=== PATIENT | female | born 1970 | race Caucasian/White ===

== ENCOUNTER → 2017-12-07 17:46 | Outpatient (CLI) | payer OTHER, SELFPAY ==
--- NOTE | 2017-12-07 17:59 | DI.MRI.S_ITS ---
PROCEDURE: MR HEAD/BRAIN WO CON INDICATIONS: MS check up TECHNIQUE: Noncontrast sagittal and axial FLAIR, axial and coronal T2 fast spin echo, axial VIBE, axial gradient echo, axial diffusion and ADC through the brain. After the administration of contrast, axial and coronal VIBE with fat saturation through the brain. COMPARISON: , MR, BRAIN W&WO CONTRAST, 05/04/2016, 18:55. FINDINGS: Image quality: Excellent. CSF spaces: Ventricles are normal in size and shape. Basal cisterns are patent. No extra-axial fluid collections. Brain: No intracranial bleeds or mass effects. Yancey-white matter interface appears intact. No suspicious white matter lesions. No abnormal intracranial enhancement. Diffusion weighted images show no acute ischemic insults. Brainstem appears normal. Normal intravascular flow voids are present. Skull and face: Calvarial marrow signal is normal. Orbits appear normal. Sinuses: Sinuses and mastoids are clear. IMPRESSION: The current examination shows no identifiable area of abnormal white matter signal, and overall currently the brain parenchyma appears normal for age. The brainstem and upper cervical cord also are visualized on the sagittal flair imaging and appear normal. Dictated by: Renato Nelson M.D. on 12/08/2017 at 9:30 Approved by: Renato Nelson M.D. on 12/08/2017 at 9:34
--- NOTE | 2017-12-07 17:59 | DI.MRI.S_ITS ---
PROCEDURE: MR CERVICAL SPINE WO CON INDICATIONS: MS TECHNIQUE: Noncontrast sagittal T1 spin echo and T2 fast spin echo, sagittal STIR, foraminal oblique sagittal T2 fast spin echo, and axial gradient echo or T2 fast spin echo through the cervical spine. COMPARISON: [facility], MR, C-SPINE W&WO CONTRAST, 05/04/2016, 19:15. [facility], MR, MR HEAD/BRAIN WO CON, 12/07/2017, 18:04. FINDINGS: Image quality: Excellent. Alignment and Curvature: There is normal bony alignment. Bone Marrow: Marrow demonstrates normal overall signal. Spinal Cord: Visualized spinal cord has normal size and signal. No cerebellar tonsillar herniation. Paraspinous Soft Tissues: No paravertebral masses. Prevertebral soft tissues are normal in thickness. C2-C3: Normal appearance. C3-C4: Normal appearance except for a slight degree of posterior right-sided this bulge, best seen on axial imaging, without foraminal stenosis but with slight anterior right spinal stenosis. C4-C5: Normal appearance except for a minimal right-sided posterior disc bulge without spinal or foraminal stenosis. C5-C6: Moderate degenerative disc disease, with a posterior transverse broad-based disc bulge that is greater on the left than the right, and which effaces CSF from the anterior thecal sac, and extends mildly into the internal os of the neural foramen on the left, producing mild to moderate left greater than right spinal stenosis and mild left foraminal stenosis. C6-C7: Normal appearance except for mild disc desiccation. C7-T1: Normal appearance. IMPRESSION: No intrinsic lesion within the visualized brainstem or cervical cord that would indicate presence of underlying multiple sclerosis. There has been mild interval worsening of degenerative disc disease along the cervical spine when compared to the prior study from 05/04/16. This results in mildly worsened degree of C5-C6 spinal and foraminal stenosis, left greater than right. Mild degenerative changes elsewhere as noted. Dictated by: Renato Nelson M.D. on 12/08/2017 at 9:34 Approved by: Renato Nelson M.D. on 12/08/2017 at 9:40
== END ==
PROVIDERS: Family Provider Nurse Practitioner Family; PCP Nurse Practitioner Family; Visit Provider Psychiatry & Neurology Neurology
DX: G35 Multiple sclerosis (principal); M50.30 Other cervical disc degeneration, unspecified cervical region; M48.02 Spinal stenosis, cervical region; M99.71 Connective tissue and disc stenosis of intervertebral foramina of cervical region
CPT/HCPCS: 70551; 72141

== ENCOUNTER → 2018-04-27 12:57 | Outpatient (CLI) | payer OTHER, SELFPAY ==
[2018-04-27 13:09] LABS: Bacteria Urine None Seen
[2018-04-27 13:17] LABS: Appearance Urine UA CLOUDY; Bilirubin Urine UA NEGATIVE (NEGATIVE); Color Urine UA RED; Glucose Urine UA NEGATIVE (Normal); Ketones Urine UA NEGATIVE (NEGATIVE); Leukocyte Esterase Urine UA 1+ (NEGATIVE); Nitrite Urine UA NEGATIVE (Negative); Occult Blood Urine UA 3+ (Negative); Protein Urine UA 2+ (Negative); Specific Gravity Urine UA 1.025 (1.000-1.035); Urobilinogen Urine UA 0.2 E.U./dL (0.2)
[2018-04-27 13:29] LABS: Amorphous Sediment Urine 2+; Culture Indicated Urine Specimen Cultured; RBC Urine 5-10/HPF (0-5/HPF); Squamous Epithelial Cell Urine 1-5 /HPF; WBC Urine 5-10/HPF (0-5/HPF)
== END ==
PROVIDERS: PCP Nurse Practitioner Family; Visit Provider Nurse Practitioner Family
DX: R30.0 Dysuria (principal); R31.9 Hematuria, unspecified
CPT/HCPCS: 81001; 87077; 87086; 87186

== ENCOUNTER → 2019-02-28 07:24 | Outpatient (CLI) | payer OTHER, SELFPAY ==
[2019-02-28 08:15] LABS: Appearance Urine UA SL CLOUDY; Bilirubin Urine UA NEGATIVE (NEGATIVE); Color Urine UA YELLOW; Glucose Urine UA NEGATIVE (Negative); Ketones Urine UA NEGATIVE (NEGATIVE); Leukocyte Esterase Urine UA 1+ (NEGATIVE); Nitrite Urine UA POSITIVE (Negative); Occult Blood Urine UA 3+ (Negative); Protein Urine UA 1+ (Negative); Specific Gravity Urine UA 1.015 (1.000-1.035); Urobilinogen Urine UA 0.2 E.U./dL (0.2)
[2019-02-28 08:34] LABS: pH Urine UA 5.5 (4.5-8.0)
[2019-02-28 08:35] LABS: Bacteria Urine Many (>30); RBC Urine 30-100/HPF (0-5/HPF); Squamous Epithelial Cell Urine 1-5 /HPF (0-5/HPF); WBC Urine 30-100/HPF (0-5/HPF)
[2019-02-28 08:36] LABS: Culture Indicated Urine Specimen Cultured
== END ==
PROVIDERS: PCP Nurse Practitioner; Visit Provider Nurse Practitioner
DX: R39.89 Other symptoms and signs involving the genitourinary system (principal)
CPT/HCPCS: 81001; 87077; 87086; 87186

== ENCOUNTER → 2019-03-06 08:27 | Outpatient (CLI) | payer OTHER, SELFPAY | PROVIDERS: PCP Nurse Practitioner; Visit Provider Nurse Practitioner | DX: N39.0 Urinary tract infection, site not specified (principal) | CPT/HCPCS: 87077; 87086; 87186 ==

== ENCOUNTER → 2019-04-07 17:30 | Outpatient (CLI) | payer OTHER, SELFPAY | PROVIDERS: PCP Nurse Practitioner; Visit Provider Physician Assistant | DX: R30.0 Dysuria (principal) | CPT/HCPCS: 87077; 87086; 87186 ==

== ENCOUNTER → 2019-07-28 11:39 | Outpatient (CLI) | payer OTHER, SELFPAY ==
[2019-07-28 12:21] LABS: Add Manual Diff / Slide Review NO; Basophils Absolute Auto 0 /uL (0-100); Basophils Percent Auto 0.6 % (0-2); Eosinophils Absolute Auto 100 /uL (0-450); Eosinophils Percent Auto 1.2 % (2-4); Hematocrit 34.7 % (36-46); Hemoglobin 11.4 g/dL (12.0-16.0); Lymphocytes Absolute Auto 2100 /uL (1100-4500); Lymphocytes Percent Auto 29.5 % (25-40); Mean Corpuscular HGB Conc 32.9 % (30-36); Mean Corpuscular Hemoglobin 27.9 PG (26-34); Mean Corpuscular Volume 85.1 fL (80-100); Monocytes Absolute Auto 600 /uL (0-900); Monocytes Percent Auto 7.6 % (3-14); Neutrophils Absolute Auto 4400 /uL (1500-7000); Neutrophils Percent Auto 61.1 % (50-75); Platelet Count 338 X10^3/uL (150-400); Red Blood Cell Count 4.08 X10^6/uL (4.0-5.2); Red Cell Distribution Width 13.2 % (11.6-14.8); White Blood Cell Count 7.3 X10^3/uL (4.5-11.0)
[2019-07-28 12:36] LABS: Alanine Aminotransferase 30 IU/L (<35); Albumin Globulin Ratio 1.5 (1.0-2.8); Alkaline Phosphatase 92 U/L (38-126); Aspartate Aminotransferase 24 IU/L (14-36); Bilirubin Total 0.3 mg/dL (0.2-1.3); Blood Urea Nitrogen 16 mg/dL (7-17); Calcium 9.5 mg/dL (8.4-10.2); Carbon Dioxide 23 mmol/L (22-32); Chloride 106 mmol/L (98-107); Cholesterol 195 mg/dL (140-199); Estimated Glomerular Filt Rate 59.4 mL/min (>60); Globulin 2.7 g/dL (1.7-4.1); Glucose 96 mg/dL (70-100); HDL Cholesterol 51 mg/dL (40-60); HEMOLYSIS < 15 (0-50); LDL Cholesterol Calculated 113 mg/dL (<100); Magnesium 2.2 mg/dL (1.6-2.3); Potassium 3.9 mmol/L (3.4-5.1); Sodium 139 mmol/L (137-145); Total Protein 6.7 g/dL (6.3-8.2); Triglycerides 154 mg/dL (35-150); VLDL Cholesterol Calculated 31 mg/dL (2-30)
[2019-07-28 12:53] LABS: Vitamin D 25 Hydroxy (D3) 77.2 ng/mL (30.0-100.0)
[2019-07-28 13:12] LABS: Ferritin 6 ng/mL (6-137)
[2019-07-28 13:42] LABS: Folate > 20.0 ng/mL (2.76-20.0); Vitamin B12 820 pg/mL (239-931)
[2019-08-01 15:48] LABS: Vitamin B1 170 nmol/L (78-185)
== END ==
PROVIDERS: PCP Nurse Practitioner; Referring Provider Surgery; Visit Provider Surgery
DX: K91.2 Postsurgical malabsorption, not elsewhere classified (principal)
CPT/HCPCS: 36415; 80053; 80061; 82306; 82607; 82728; 82746; 83735; 84425; 85025

== ENCOUNTER → 2019-11-08 12:16 | Outpatient (CLI) | payer OTHER, SELFPAY ==
[2019-11-08 12:40] LABS: Add Manual Diff / Slide Review NO; Basophils Absolute Auto 100 /uL (0-100); Basophils Percent Auto 0.8 % (0-2); Eosinophils Absolute Auto 100 /uL (0-450); Hematocrit 39.3 % (36-46); Hemoglobin 13.4 g/dL (12.0-16.0); Lymphocytes Absolute Auto 3000 /uL (1100-4500); Lymphocytes Percent Auto 30.2 % (25-40); Mean Corpuscular Hemoglobin 30.3 PG (26-34); Mean Corpuscular Volume 89.1 fL (80-100); Monocytes Absolute Auto 600 /uL (0-900); Neutrophils Absolute Auto 6200 /uL (1500-7000); Platelet Count 315 X10^3/uL (150-400); Red Blood Cell Count 4.41 X10^6/uL (4.0-5.2); Red Cell Distribution Width 20.1 % (11.6-14.8)
[2019-11-08 13:16] LABS: Alanine Aminotransferase 23 IU/L (<35); Albumin 4.2 g/dL (3.5-5.0); Albumin Globulin Ratio 1.3 (1.0-2.8); Alkaline Phosphatase 85 U/L (38-126); Aspartate Aminotransferase 21 IU/L (14-36); BUN Creatinine Ratio 21.8 (6-22); Bilirubin Total 0.4 mg/dL (0.2-1.3); Blood Urea Nitrogen 22 mg/dL (7-17); Calcium 9.8 mg/dL (8.4-10.2); Carbon Dioxide 23 mmol/L (22-32); Chloride 106 mmol/L (98-107); Cholesterol 214 mg/dL (140-199); Estimated Glomerular Filt Rate 58.8 mL/min (>60); Globulin 3.2 g/dL (1.7-4.1); Glucose 97 mg/dL (70-100); HDL Cholesterol 55 mg/dL (40-60); HEMOLYSIS < 15 (0-50); LDL Cholesterol Calculated 116 mg/dL (<100); Magnesium 2.3 mg/dL (1.6-2.3); Potassium 4.4 mmol/L (3.4-5.1); Sodium 138 mmol/L (137-145); Total Protein 7.4 g/dL (6.3-8.2); Triglycerides 216 mg/dL (35-150)
[2019-11-08 13:42] LABS: RBC Morphology Normal Morphology
[2019-11-08 13:48] LABS: Ferritin 23 ng/mL (6-137)
[2019-11-08 14:18] LABS: Folate > 20.0 ng/mL (2.76-20.0); Vitamin B12 587 pg/mL (239-931)
[2019-11-08 16:54] LABS: Vitamin D 25 Hydroxy (D3) 77.5 ng/mL (30.0-100.0)
[2019-11-12 16:07] LABS: Vitamin B1 169.6 nmol/L (66.5-200.0)
== END ==
PROVIDERS: PCP Nurse Practitioner; Referring Provider Surgery; Visit Provider Surgery
DX: K91.2 Postsurgical malabsorption, not elsewhere classified (principal)
CPT/HCPCS: 36415; 80053; 80061; 82306; 82607; 82728; 82746; 83735; 84425; 85025

== ENCOUNTER → 2019-12-14 14:07 | Outpatient (CLI) | payer OTHER, SELFPAY ==
--- NOTE | 2019-12-14 14:09 | DI.US.S_ITS ---
PROCEDURE: US PELVIC COMPLETE INDICATIONS: MISSING IUD STRINGS AND CLOTS TECHNIQUE: Real-time scanning was performed of the pelvic organs, with image documentation. Additional endovaginal scanning was necessary due to incomplete visualization of the adnexal and endometrial structures by transabdominal scanning. COMPARISON: [facility], US, PELVIC COMPLETE, 07/27/2015, 19:17. FINDINGS: Transabdominal scanning: Limited scanning through the kidneys shows no hydronephrosis. No pathologic free abdominal or pelvic fluid. Endovaginal scanning: Uterus: Uterus is normal in size at 15.2 x 5.48 x 7.2 cm. The endometrium is not well visualized and cannot be accurately assessed. 29 mm subserosal fibroid. No intrauterine device is seen. Ovaries: Ovaries normal bilaterally measuring 3.4 x 1.6 x 2.0 cm on the right and 3.0 x 1.5 x 2.4 cm on the left. IMPRESSION: 1. No intrauterine device. 2. 29 mm subserosal fibroid. 3. Endometrial complex suboptimally visualized. Dictated by: Edgar PARSONS Interpreted: Gilberto De Leon MD on 12/14/2019 at 15:40 Approved by: Gilberto De Leon M.D. on 12/14/2019 at 16:26
== END ==
PROVIDERS: PCP Nurse Practitioner; Referring Provider Nurse Practitioner; Visit Provider Nurse Practitioner
DX: D25.2 Subserosal leiomyoma of uterus (principal); T83.32XA Displacement of intrauterine contraceptive device, initial encounter
CPT/HCPCS: 76830; 76856

== ENCOUNTER → 2019-12-15 06:53 | Outpatient (CLI) | payer OTHER, SELFPAY ==
[2019-12-15 08:29] LABS: Add Manual Diff / Slide Review NO; Basophils Absolute Auto 0 /uL (0-100); Basophils Percent Auto 0.6 % (0-2); Eosinophils Absolute Auto 100 /uL (0-450); Eosinophils Percent Auto 1.3 % (2-4); Hematocrit 36.8 % (36-46); Hemoglobin 12.4 g/dL (12.0-16.0); Lymphocytes Absolute Auto 2200 /uL (1100-4500); Lymphocytes Percent Auto 29.7 % (25-40); Mean Corpuscular HGB Conc 33.6 % (30-36); Mean Corpuscular Hemoglobin 32.2 PG (26-34); Mean Corpuscular Volume 95.6 fL (80-100); Monocytes Absolute Auto 600 /uL (0-900); Monocytes Percent Auto 7.3 % (3-14); Neutrophils Absolute Auto 4600 /uL (1500-7000); Neutrophils Percent Auto 61.1 % (50-75); Platelet Count 246 X10^3/uL (150-400); Red Blood Cell Count 3.85 X10^6/uL (4.0-5.2); Red Cell Distribution Width 13.2 % (11.6-14.8); White Blood Cell Count 7.6 X10^3/uL (4.5-11.0)
[2019-12-15 08:40] LABS: Alanine Aminotransferase 27 IU/L (<35); Albumin 3.9 g/dL (3.5-5.0); Albumin Globulin Ratio 1.5 (1.0-2.8); Alkaline Phosphatase 74 U/L (38-126); Aspartate Aminotransferase 21 IU/L (14-36); BUN Creatinine Ratio 14.9 (6-22); Bilirubin Total 0.4 mg/dL (0.2-1.3); Blood Urea Nitrogen 14 mg/dL (7-17); Calcium 9.7 mg/dL (8.4-10.2); Carbon Dioxide 27 mmol/L (22-32); Chloride 105 mmol/L (98-107); Cholesterol 197 mg/dL (140-199); Estimated Glomerular Filt Rate > 60.0 mL/min (>60); Globulin 2.6 g/dL (1.7-4.1); Glucose 89 mg/dL (70-100); HDL Cholesterol 57 mg/dL (40-60); HEMOLYSIS < 15 (0-50); LDL Cholesterol Calculated 116 mg/dL (<100); Potassium 3.9 mmol/L (3.4-5.1); Sodium 139 mmol/L (137-145); Total Protein 6.5 g/dL (6.3-8.2); Triglycerides 119 mg/dL (35-150)
[2019-12-15 09:09] LABS: Thyroid Stimulating Hormone 2.52 uIU/mL (0.47-4.68)
[2019-12-15 10:48] LABS: Creatinine Urine Random 272.8 mg/dL
[2019-12-15 10:50] LABS: Microalbumi Creatinin Ratio Ur 3.2 ug/mg CR (<30); Microalbumin Urine Random 0.9 mg/dL (0-1.6)
== END ==
PROVIDERS: PCP Nurse Practitioner; Referring Provider Nurse Practitioner; Visit Provider Nurse Practitioner
DX: E03.9 Hypothyroidism, unspecified (principal); E66.9 Obesity, unspecified; E78.5 Hyperlipidemia, unspecified; F32.9 Major depressive disorder, single episode, unspecified; I10 Essential (primary) hypertension; Z78.9 Other specified health status
CPT/HCPCS: 36415; 80053; 80061; 82043; 82570; 84443; 85025

== ENCOUNTER → 2020-01-01 14:29 | Outpatient (CLI) | payer OTHER, SELFPAY ==
[2020-01-02 16:23] LABS: COVID19 Sendout Not Detected (Not Detect)
== END ==
PROVIDERS: PCP Nurse Practitioner; Visit Provider Physician Assistant
DX: Z11.59 Encounter for screening for other viral diseases (principal)
CPT/HCPCS: 87635

== ENCOUNTER 2020-01-04 12:43 | Day surgery (SDC) | payer OTHER, SELFPAY ==
[2019-12-28 08:03] VITALS: BMI 28.4
[2020-01-04] VITALS (15 sets, daily range): BP systolic 95–163; BP diastolic 59–91; PULSE 62–88; RESP 10–20; TEMP 35.9–36.9; O2SAT 62–100; BMI 28.4
--- NOTE | 2020-01-04 | PATH_ITS ---
[facility] Accession Number: [id number] . 01 Material submitted: . UTERUS/FALLOPIAN TUBES - UTERUS AND BILATERAL FALLOPIAN TUBES . 02 Diagnosis: Uterus and Bilateral Fallopian Tubes, Hysterectomy and Bilateral Salpingectomy (Weight 176 grams): Weakly proliferative / inactive endometrium; negative for glandular hyperplasia, cytologic atypia or malignancy. Myometrium with involvement by adenomyosis and with a mitotically active leiomyoma (7 mitoses per 10 high-power field); negative for cytologic atypia, regions of necrosis, or malignancy. Uterine serosa with no significant abnormality by gross examination. Fallopian tubes x2 with no significant histomorphologic abnormality. [facility] 01/08/2020 1651 Local . 02 Electronically signed: . Julianne Hanks MD, Pathologist NPI- [id number] . 01 Gross description: . Specimen A is received in formalin, labeled with patient identification and uterus, bilateral fallopian tubes. It consists of 176-gram yellow-orourke and mildly firm uterine fragments (13.6 x 11.7 x 4.5 cm in aggregate) and two undesignated and fimbriated fallopian tubes (3.7 to 5.8 cm in length and 0.5 cm in diameter each). Sectioning the uterine fragments reveals yellow-orourke whorled and trabeculated cut surfaces without any grossly identified necrosis or hemorrhage. The serosae of the fallopian tubes are purple to pink-orourke and dull. Sectioning the fallopian tubes reveals pinpoint and patent lumina which are lined by yellow-orourke and grossly unremarkable mucosa. The fimbriae are freely moveable. Soapstoner sections are submitted in seven cassettes. . Summary of sections: A1-A5 - office services representative sections of uterine fragments, two pieces each. A6 - office services representative bisected fimbria and office services representative cross-sections, longer fallopian tube, four pieces. A7 - office services representative bisected fimbria and office services representative cross-sections, shorter fallopian tube, four pieces. ([id number]) /MRV 01/05/2020 1011 Local . 02 Pathologist provided ICD-10: N92.1, N64.9, N85.2, N92.0 . 02 CPT . 034137 Performed at: [address] [facility] [address] [id number] MD Oneil Whitt MD Phone: [phone] Performed at: [address] [facility] [address] [id number] MD Renetta Peres MD Phone: [phone]
--- NOTE | 2020-01-04 12:54 | SUR.OPER ---
Lithotomy on padded OR bed. Chili Pad Positioner under torso. Head on pillow, arms padded and tucked at sides. Legs secured in padded yellow fins stirrups.
[2020-01-04] MEDS: LACTATED RINGERS 1,000 ML 100 ML IV ×2 (13:11→17:53)
[2020-01-04] MEDS: CEFAZOLIN 2 GM/100 ML FROZ.PIGGY IV (13:36)
--- NOTE | 2020-01-04 13:38 | PM.PREOP ---
Pre-operative Note COVID-19 COVID-19 status: Negative Result date/Date tested (Pos, Neg/Pending): 01/01/20 Interval Note History & Physical reviewed/Exam performed by Physician: Yes Changes to H&P: No H&P completed within 30 days and has changed as indicated here:: 12/26/19
[2020-01-04] MEDS: BUPIVACAINE 0.5% W/ EPI (PF) 30 ML VIAL INJ (14:13)
[2020-01-04] MEDS: ACETAMINOPHEN IV 1,000 MG/100 ML VIAL 400 MG IV (14:13)
[2020-01-04] MEDS: ROPIVACAINE 0.2% PF 2 MG/ML 10ML AMP 10 ML INJ (15:14)
--- NOTE | 2020-01-04 16:00 | P.OP_ITS ---
Operative Date/Time/Diagnoses Date of procedure: 01/04/20 Time of procedure: 16:00 Pre-op diagnosis: Enlarged fibroid uterus, menometrorrhagia Post-op diagnosis: same Procedure & Clinicians Procedure: Procedures Operation Date: 01/04/20 14:00 Actual Procedures Side Surgeon p Laparoscopic Supracervical Hysterectomy w/ bilateral salpingectomy Naz Solorio MD Indications: Enlarged fibroid uterus Menometrorrhagia Surgeon: Naz Solorio Landscape Account Manager: Danna Woodruff Anesthesia Type: General Operative Notes Findings: Fifteen week size multi fibroid uterus Large posterior fundal fibroid measuring 7 cm Normal ovaries and tubes Normal liver, gallbladder, and appendix Closure Type: primary Specimen(s): left tube, right tube and uterus Applied: catheter (To continuous drainage) Estimated blood loss (mL): 250 Blood products transfused: none Procedure in detail: The patient was taken to the operating room where she was placed in the dorsal supine position. After adequate general endotracheal anesthesia was achieved, she was placed in the dorsal lithotomy position, and prepped and draped in the usual sterile fashion. A timeout was performed. A bivalve speculum was placed into the vagina and the anterior lip of the cervix grasped with a single-tooth tenaculum. The cervical os was sequentially dilated until the ZUMI uterine manipulator could pass easily into the endometrial cavity. The single-tooth tenaculum was removed from the anterior lip of the cervix, and the bivalve speculum was removed from the vagina. Attention was then turned to the abdomen where 6 mL of half percent Marcaine with epinephrine were injected above the umbilical fold. A 10mm incision was made. The incision was carried down to the fascia where the fascia was nicked in the midline. The incision was extended bilaterally. The peritoneum was identified and grasped between 2 hemostats. It was entered sharply with the Metzenbaum scissors. The 10 mm Banks trocar was placed. 2 other incisions were made midway between the pubic symphysis and umbilicus after 5 mL of half percent Marcaine with epinephrine were injected. These were 5 mm incisions. Two 5 mm trochars were placed under direct visualization. The right tube was grasped with an atraumatic grasper. Using the plasma kinetic with settings of 40 W the mesosalpinx was cauterized and cut all the way down to the cornua of the uterus. The cornua of the uterus was then grasped with an atraumatic grasper. The utero-ovarian ligaments were cauterized and cut. The round ligament and broad ligament was cauterized and cut with pl asma kinetic. Hemostasis was achieved. The bladder flap was created using the plasma kinetic with cautery and cut senior living across. The uterine arteries on the right side were extensively cauterized with plasma kinetic. All of this was repeated on the left side. The remainder of the bladder flap was created using the plasma kinetic, and the bladder taken down off the lower uterine segment and cervix. Using the Endoloop, the cervix was amputated from the uterus 2 cm above the uterosacral ligaments, after the ZUMI uterine manipulator was removed from the uterus. There was a small arterial bleed at 9:00 a.m. on the cervix and this was cauterized with the PlasmaKinetic. There was a small amount of bleeding noted from the posterior edge of the cervix, and this was cauterized for hemostasis. A sponge stick was placed into the vagina. The endocervical canal was extensively cauterized with the PlasmaKinetic. 6 mL of half percent Marcaine with epinephrine were injected above the pubic symphysis. A 12 mm incision was made. A 12 mm trocar was placed and then removed. An Endobag was placed through the suprapubic incision and the uterus and tubes were placed into the Endobag. The fascia was extended slightly. The Marco was placed into the endobag. The uterus was hand morcellated in approximately 25 pieces. The Endobag and Marco were removed from the peritoneal cavity. The pelvis was copiously irrigated with warm normal saline. No bleeding was noted. The instruments are removed from the abdomen. The CO2 was allowed to escape. The trocars were removed. The suprapubic incision was closed on the fascia with 0 Vicryl. The supraumbilical incision was closed on the fascia with 0 Vicryl. The subcutaneous layer on the suprapubic incision was closed with 3 simple int errupted sutures with 3 0 Vicryl. All of the incisions were closed with 4-0 Biosyn in a subcuticular fashion. The moistened sponge stick was removed from the vagina. Sponge, lap, and instrument counts were correct x-2. The patient tolerated the procedure well, was taken to PACU in stable condition. Complications: none Post-operative Condition: stable Disposition: PACU Plan for aftercare: To acute care after recovery
[2020-01-04] MEDS: HYDROMORPHONE 2 MG INJ IV ×2 (16:04→16:12)
[2020-01-04] MEDS: OXYCODONE IR 5 MG TABLET PO (16:13)
[2020-01-04] MEDS: ACETAMINOPHEN 325 MG TABLET 650 MG PO ×2 (17:53→23:42)
[2020-01-04] MEDS: KETOROLAC 30 MG/ML VIAL IV ×2 (17:53→23:41)
[2020-01-04] MEDS: OXYCODONE 5 MG/5 ML ORAL SOLUTION 10 MG PO ×2 (19:00→23:05)
[2020-01-04] MEDS: HYDROMORPHONE 1 MG INJ IV (19:35)
[2020-01-04] MEDS: TIZANIDINE 4 MG TABLET 8 MG PO (21:18)
[2020-01-04] MEDS: TRAZODONE 100 MG TABLET PO (21:19)
[2020-01-04] MEDS: DOCUSATE 250 MG CAPSULE PO (21:19)
[2020-01-05] MEDS: OXYCODONE 5 MG/5 ML ORAL SOLUTION 10 MG PO ×2 (02:39→08:09)
[2020-01-05 03:28] VITALS: BP 103/64; PULSE 67; RESP 18; TEMP 36.3; O2SAT 99
[2020-01-05] MEDS: TIZANIDINE 4 MG TABLET 8 MG PO (03:46)
[2020-01-05] MEDS: HYDROMORPHONE 1 MG INJ IV (03:51)
[2020-01-05] MEDS: LACTATED RINGERS 1,000 ML 100 ML IV (03:52)
[2020-01-05 05:36] LABS: Add Manual Diff / Slide Review NO; Basophils Absolute Auto 100 /uL (0-100); Basophils Percent Auto 0.7 % (0-2); Eosinophils Absolute Auto 0 /uL (0-450); Eosinophils Percent Auto 0.1 % (2-4); Hematocrit 33.3 % (36-46); Hemoglobin 11.2 g/dL (12.0-16.0); Lymphocytes Absolute Auto 1500 /uL (1100-4500); Mean Corpuscular HGB Conc 33.7 % (30-36); Mean Corpuscular Hemoglobin 31.6 PG (26-34); Mean Corpuscular Volume 93.7 fL (80-100); Monocytes Absolute Auto 500 /uL (0-900); Monocytes Percent Auto 5.5 % (3-14); Neutrophils Absolute Auto 7600 /uL (1500-7000); Neutrophils Percent Auto 78.7 % (50-75); Platelet Count 267 X10^3/uL (150-400); Red Blood Cell Count 3.55 X10^6/uL (4.0-5.2); Red Cell Distribution Width 12.2 % (11.6-14.8); White Blood Cell Count 9.7 X10^3/uL (4.5-11.0)
[2020-01-05] MEDS: ACETAMINOPHEN 325 MG TABLET 650 MG PO ×2 (05:55→11:36)
[2020-01-05] MEDS: KETOROLAC 30 MG/ML VIAL IV ×2 (05:55→11:36)
[2020-01-05 08:00] VITALS: BP 102/58; PULSE 54; RESP 15; TEMP 36.2; O2SAT 100
[2020-01-05] MEDS: DOCUSATE 250 MG CAPSULE PO (08:31)
--- NOTE | 2020-01-05 10:02 | PM.PNPO.1 ---
Subjective Subjective Date Patient Seen: 01/05/20 Time Patient Seen: 10:02 Interval history: Patient is a 49-year-old postop day # 1 status post laparoscopic supracervical hysterectomy with bilateral salpingectomy Tolerating a diet. Passing flatus. Pain is well controlled. She has been able to ambulate. She is voiding without catheter. Exam Vital Signs (past 8 hours): - 01/05/20 03:28 01/05/20 08:00 Temperature 97.4 F L 97.1 F L Pulse Rate 67 54 L Respiratory Rate 18 15 Blood Pressure 103/64 102/58 L Pulse Oximetry 99 100 Oxygen Delivery Method Room Air Oxygen Flow Rate 0 Narrative Exam Narrative: Generally: Patient is sitting up in bed, no acute distress Lungs: Clear to auscultation bilaterally Cardiovascular: Regular rate and rhythm Abdomen: Soft, flat. Good bowel sounds in all 4 quadrants. Incisions: Clean dry and intact with op sites Extremities: Negative Homans, no edema Objective Labs Result Diagrams: 01/05/20 05:20 Labs: Laboratory Results - last 24 hr 01/05/20 05:20 WBC 9.7 RBC 3.55 L Hgb 11.2 L Hct 33.3 L MCV 93.7 MCH 31.6 MCHC 33.7 RDW 12.2 Plt Count 267 Neut % (Auto) 78.7 H Lymph % (Auto) 15.0 L [place] % (Auto) 5.5 Eos % (Auto) 0.1 L Baso % (Auto) 0.7 Neut # (Auto) 7600 H Lymph # (Auto) 1500 [place] # (Auto) 500 Eos # (Auto) 0 Baso # (Auto) 100 Assessment & Plan Post-op Postoperative Procedures: Procedures Operation Date: 01/04/20 14:00 Actual Procedures Side Surgeon p Laparoscopic Supracervical Hysterectomy w/ bilateral salpingectomy Naz Solorio MD Postoperative day: 1 Postoperative status: doing well Postoperative plan: discharge Time Spent With Patient Time with patient: 15-24 minutes Quality VTE Deep Vein Thrombosis/Pulmonary Embolism Present on Admission: No
--- NOTE | 2020-01-05 10:04 | PM.DS.1 ---
History of Present Illness History of Present Illness Date Patient Seen: 01/05/20 Time Patient Seen: 10:04 Chief complaint: *OPB* SDC Narrative: Patient is a 49-year-old postop day # 1 status post laparoscopic supracervical hysterectomy and bilateral salpingectomy. She is doing very well. She is tolerating a diet. She is ambulating. She has voided without the catheter. Her pain is well controlled. Discharge Providers Provider Date of admission: 01/04/20 Discharge Date: 01/05/20 Primary care physician: KAREN Mcdonald Discharge provider: Naz Solorio MD Summary Hospital Course Discharge Diagnosis: Enlarged fibroid uterus Menometrorrhagia Hospital Course: Patient is a 49-year-old who was admitted on January 04, 2020 for a scheduled laparoscopic supracervical hysterectomy with bilateral salpingectomy. She underwent this procedure without any complications. Her postoperative course was unremarkable. She is tolerating a diet. Her pain is well controlled. She is ambulating. She has voided without the catheter. Status at Discharge Cognitive/behavioral status at discharge: oriented Functional status at discharge: independent ambulation Overall status at discharge: patient is progressing back to baseline Time Spent with Patient Time spent: Less than 30 minutes Exam Vital Signs (past 8 hours): - 01/05/20 03:28 01/05/20 08:00 Temperature 97.4 F L 97.1 F L Pulse Rate 67 54 L Respiratory Rate 18 15 Blood Pressure 103/64 102/58 L Pulse Oximetry 99 100 Oxygen Delivery Method Room Air Oxygen Flow Rate 0 Objective Labs Result Diagrams: 01/05/20 05:20 Labs: Laboratory Results - last 24 hr 01/05/20 05:20 WBC 9.7 RBC 3.55 L Hgb 11.2 L Hct 33.3 L MCV 93.7 MCH 31.6 MCHC 33.7 RDW 12.2 Plt Count 267 Neut % (Auto) 78.7 H Lymph % (Auto) 15.0 L Harmon % (Auto) 5.5 Eos % (Auto) 0.1 L Baso % (Auto) 0.7 Neut # (Auto) 7600 H Lymph # (Auto) 1500 [place]on # (Auto) 500 Eos # (Auto) 0 Baso # (Auto) 100 Discharge Assessment & Plan Assessment and Plan Assessment: Assessment: Postop day # 1 status post LSCH/bilateral salpingectomy doing very well Plan of Treatment: Discharged home Follow-up 2 weeks for incision check Rx for Percocet sent to [facility] [place] Patient is to call with fever, chills, redness or drainage around the incisions, or bleeding vaginally more than spotting to light Discharge Plan Discharge Plan Patient Disposition: Home Discharge comment: Call with fever, chills, redness or drainage around the incisions, or bleeding vaginally more than spotting to light Discharge Med Rec/Prescriptions Prescriptions: New oxycodone-acetaminophen [Percocet] 5-325 mg tablet 1 tab PO Q4-6H PRN (Reason: pain) Qty: 30 RF: 0 Continued cyanocobalamin (vitamin B-12) 1,000 MCG/1 ML solution 1,000 mcg IM QMONTH Qty: 0 RF: 0 levothyroxine 50 mcg tablet 50 mcg PO DAILY Qty: 90 RF: 3 sertraline 50 mg tablet 50 mg PO DAILY Qty: 90 RF: 3 tizanidine 4 mg tablet 8 mg PO BEDTIME PRN (Reason: muscle spasm) Qty: 30 RF: 3 trazodone 100 mg tablet 100 mg PO BEDTIME Qty: 90 RF: 3 cholecalciferol (vitamin D3) 10,000 unit capsule 10,000 unit PO QWEEK RF: 0 Discontinued levonorgestrel-ethinyl estrad [Falmina (28)] 0.1-20 mg-mcg tablet 1 tab PO QDAY Qty: 84 RF: 3 medroxyprogesterone 10 mg tablet 10 mg PO DAILY Qty: 60 RF: 1 Follow up/Referrals: Diamond Bryan ARNP [Primary Care Provider] - Naz Solorio MD [Physician] - 2 Weeks Discharge Orders: Discharge (Order); Ordered 01/05/20 Ordered By: Naz Solorio Provider Discharge Instructions Diet: Regular Activity: No intercourse until after postop visit Skin/Wound/Dressing Care Report to your healthcare provider any signs of infection, such as:: chills, fever, increased pain, unusual drainage and unusual redness Dressing: Remove outer plastic dressings and guaze after first shower Visit Report/Discharge Packet Instructions: DI for Hysterectomy, DI for Laparoscopy Stand Alone Forms: Surgery Discharge Discharge Data Primary Care Provider: Diamond Bryan Attending Provider: Naz Solorio VTE Deep Vein Thrombosis/Pulmonary Embolism Present on Admission: No
--- NOTE | 2020-01-05 10:28 | PC.NURSE ---
Patient given 10mg of oxycodone and helpful. Lap sites x4 all cdi.. Patient has voided after carrizales catheter taken out. BT+x4. Patient is going to discharge at 1130. in room and visiting.
--- NOTE | 2020-01-05 13:16 | CM.IDA ---
Initial DCP Assessment Note Patient is a 49 yo female, resident of [place]. Patient is POD#1 from status post laparoscopic supracervical hysterectomy and bilateral salpingectomy PCP: Diamond Bryan Payer: Can [place] only/Cindy VILLALPANDO Reviewed chart. Patient is inpd. and active at baseline, supportive partner at bedside. Patient and family feel confident about returning home, no needs identified from this CHIP [employer]ER. P: Home w/supportive family today VIVI Palm
== END 2020-01-05 11:44 | disposition home or self-care (01) ==
LOC: OR 12:45 → AC 12:52
PROVIDERS: PCP Nurse Practitioner; Referring Provider Nurse Practitioner; Visit Provider Obstetrics & Gynecology
PROC: 0UT94ZL Resection of Uterus, Supracervical, Percutaneous Endoscopic Approach (ICD-10-PCS; CPT 58542; principal; 2020-01-04 14:00)
DX: N85.2 Hypertrophy of uterus (principal); N92.1 Excessive and frequent menstruation with irregular cycle; E66.9 Obesity, unspecified; I10 Essential (primary) hypertension
CPT/HCPCS: 58542; 36415; 85025; J0131; J0690; J1100; J1170; J1885; J2250; J2405; J2704; J2795; J3010

== ENCOUNTER → 2020-08-29 16:44 | Outpatient (CLI) | payer OTHER, SELFPAY ==
[2020-01-04 17:20] VITALS: BMI 28.4
--- NOTE | 2020-08-29 16:48 | DI.MG.S_ITS ---
BILATERAL DIGITAL SCREENING MAMMOGRAM 3D/2D WITH CAD WITH AUGMENTATION: 08/29/2020 CLINICAL: Routine screening. Family history of breast cancer. Comparison is made to exam dated: 11/03/2017 mammogram - [facility]. The tissue of both breasts is heterogeneously dense. This may lower the sensitivity of mammography. Current study was also evaluated with a Computer Aided Detection (CAD) system. There is an oval equal density asymmetry with an indistinct margin in the right breast posterior depth lateral region seen on the craniocaudal view only. There is an irregular equal density area of possible architectural distortion with indistinct margins in the left breast at 6 o'clock middle depth. No other significant masses or calcifications are seen in either breast. IMPRESSION: INCOMPLETE: NEEDS ADDITIONAL IMAGING EVALUATION The oval equal density asymmetry in the right breast posterior depth lateral region seen on the craniocaudal view only is indeterminate. Exaggerated CC and spot compression views with possible ultrasound are recommended. The irregular equal density area of possible architectural distortion in the left breast at 6 o'clock middle depth is indeterminate. Mediolateral and spot compression views as well as additional views with possible ultrasound are recommended. This exam was interpreted at Station ID: [id number]. NOTE: For mammograms, a report in lay terms will be sent to the patient. Approximately 15% of breast malignancies will not be visualized mammographically. In the management of a palpable breast mass, a negative mammogram must not discourage biopsy of a clinically suspicious lesion. Electronically Signed By: Oneil Rushing M.D. ddfany/:08/30/2020 08:46:50 letter sent: Additional Imaging Needed ACR BI-RADS Category 0: Incomplete [id number]
== END ==
PROVIDERS: PCP Nurse Practitioner; Referring Provider Nurse Practitioner; Visit Provider Nurse Practitioner
DX: Z12.31 Encounter for screening mammogram for malignant neoplasm of breast (principal); N64.89 Other specified disorders of breast; Z80.3 Family history of malignant neoplasm of breast
CPT/HCPCS: 77063; 77067

== ENCOUNTER → 2020-09-05 14:41 | Outpatient (CLI) | payer OTHER, SELFPAY ==
[2020-01-04 17:20] VITALS: BMI 28.4
--- NOTE | 2020-09-05 | DI.MG.S_ITS ---
BILATERAL DIGITAL DIAGNOSTIC MAMMOGRAM 3D/2D WITH AUGMENTATION: 09/05/2020 CLINICAL: Additional evaluation requested from prior study. Comparison is made to exams dated: 08/29/2020 mammogram [facility] and 11/03/2017 mammogram - [facility]. The tissue of both breasts is heterogeneously dense. This may lower the sensitivity of mammography. The oval low density asymmetry with indistinct margins in the right breast posterior depth central to the nipple seen on the craniocaudal view only is not seen on additional views. The irregular equal density asymmetry with indistinct margins in the left breast central to the nipple middle depth is less prominent on additional views. No other significant masses or calcifications are seen in either breast. IMPRESSION: INCOMPLETE: NEEDS ADDITIONAL IMAGING EVALUATION The irregular equal density asymmetry in the left breast central to the nipple middle depth is indeterminate. An ultrasound is recommended. Ultrasound will be performed immediately following the current exam. This exam was interpreted at Station ID: [id number]. NOTE: For mammograms, a report in lay terms will be sent to the patient. Approximately 15% of breast malignancies will not be visualized mammographically. In the management of a palpable breast mass, a negative mammogram must not discourage biopsy of a clinically suspicious lesion. Electronically Signed By: Oneil Rushing M.D. ddp/:09/05/2020 15:33:49 ACR BI-RADS Category 0: Incomplete [id number]
--- NOTE | 2020-09-05 14:44 | DI.US.S_ITS ---
LIMITED ULTRASOUND OF LEFT BREAST AND AXILLA: 09/05/2020 CLINICAL: Patient returns today to evaluate a focal asymmetry in the left breast. Comparison is made to exams dated: 09/05/2020 mammogram, 08/29/2020 mammogram - [facility], and 11/03/2017 mammogram - [facility]. Color flow and real-time ultrasound of the left breast 6 o'clock, retroareolar, and axilla regions were performed on the areas of interest. There is a 0.3 cm x 0.2 cm x 0.3 cm oval mass with an indistinct margin in the left breast at 6 o'clock anterior depth. This oval mass is hypoechoic. This may correlate with mammography findings. Color flow imaging demonstrates that there is adjacent vascularity. No suspicious enlarged lymph nodes were seen sonographically in the left axilla. IMPRESSION: SUSPICIOUS OF MALIGNANCY The 0.3 cm x 0.2 cm x 0.3 cm oval mass in the left breast is suspicious of malignancy. An ultrasound guided biopsy is recommended. The findings were discussed with the patient at the conclusion of the study by Dr. Dolan. This exam was interpreted at Station ID: [id number]. Electronically Signed By: Oneil Rushing M.D. ddp/:09/05/2020 16:07:32 letter sent: Biopsy Required Ultrasound BI-RADS: 4 Suspicious for malignancy
== END ==
PROVIDERS: PCP Nurse Practitioner; Referring Provider Nurse Practitioner; Visit Provider Nurse Practitioner
DX: R92.8 Other abnormal and inconclusive findings on diagnostic imaging of breast (principal); N63.24 Unspecified lump in the left breast, lower inner quadrant
CPT/HCPCS: 76642; 77066; G0279

== ENCOUNTER → 2020-09-13 07:32 | Outpatient (CLI) | payer OTHER, SELFPAY ==
[2020-01-04 17:20] VITALS: BMI 28.4
--- NOTE | 2020-09-13 | DI.US.S_ITS ---
ULTRASOUND OF LEFT BREAST: 09/13/2020 CLINICAL: Patient returns today to evaluate a focal asymmetry in the left breast. Comparison is made to exams dated: 09/05/2020 ultrasound, 09/05/2020 mammogram, 08/29/2020 mammogram - [facility], and 11/03/2017 mammogram - [facility]. Color flow and real-time ultrasound of the left breast were performed on the areas of interest. Yancey scale images of the real-time examination were reviewed. The previously described 0.3 cm x 0.2 cm x 0.3 cm oval mass with an indistinct margin in the left breast at 6 o'clock anterior depth is no longer seen on today's evaluation. This oval mass was described as hypoechoic and as likely correlating with mammography findings. Color flow imaging demonstrates that there is an adjacent vascularity. Today, this mass could not be reproduced despite a prolonged and extensive interrogation. No significant abnormalities were seen sonographically in the left breast. IMPRESSION: PROBABLY BENIGN The previously described 0.3 cm mass in the left breast 6 o'clock position 1 cm from the nipple could not be reproduced during today's extensive evaluation and a target for biopsy could not be identified. The biopsy was not performed. This is a probably benign finding. A follow-up left mammogram and left ultrasound in 6 months is recommended to demonstrate stability. Findings and recommendations were discussed with the patient during today's examination. This exam was interpreted at Station ID: [id number]. Electronically Signed By: Shira meléndez,aty/:09/13/2020 11:29:06 letter sent: Additional Imaging Needed Ultrasound BI-RADS: 3 Probably benign
== END ==
PROVIDERS: PCP Nurse Practitioner; Referring Provider Nurse Practitioner; Visit Provider Nurse Practitioner
DX: N64.89 Other specified disorders of breast (principal); R92.8 Other abnormal and inconclusive findings on diagnostic imaging of breast
CPT/HCPCS: 76642

== ENCOUNTER → 2021-03-07 08:34 | Outpatient (CLI) | payer OTHER, SELFPAY ==
[2020-01-04 17:20] VITALS: BMI 28.4
--- NOTE | 2021-03-07 08:35 | DI.MG.S_ITS ---
UNILATERAL LEFT DIGITAL DIAGNOSTIC MAMMOGRAM 3D/2D SHORT-TERM FOLLOW-UP: 03/07/2021 CLINICAL: Short term follow up of the left breast. Comparison is made to exams dated: 09/13/2020 ultrasound, 09/05/2020 ultrasound, 09/05/2020 mammogram, and 08/29/2020 mammogram - [facility]. The tissue of left breast is heterogeneously dense. This may lower the sensitivity of mammography. Left subglandular silicone implant is new. There is an irregular equal density asymmetry with an indistinct margin in the left breast at 6 o'clock middle depth. This is less prominent. No other significant masses or calcifications are seen in the breast. IMPRESSION: INCOMPLETE: NEEDS ADDITIONAL IMAGING EVALUATION The irregular equal density asymmetry in the left breast is indeterminate. An ultrasound is recommended. This exam was interpreted at Station ID: [id number]. NOTE: For mammograms, a report in lay terms will be sent to the patient. Approximately 15% of breast malignancies will not be visualized mammographically. In the management of a palpable breast mass, a negative mammogram must not discourage biopsy of a clinically suspicious lesion. Electronically Signed By: Gilberto jules/micheal:03/07/2021 11:07:47 ACR BI-RADS Category 0: Incomplete 3340F
--- NOTE | 2021-03-07 08:35 | DI.US.S_ITS ---
LIMITED ULTRASOUND OF LEFT BREAST AND AXILLA: 03/07/2021 CLINICAL: Patient returns today to evaluate a focal asymmetry in the left breast. Comparison is made to exams dated: 03/07/2021 mammogram, 09/13/2020 ultrasound, 09/05/2020 ultrasound, 09/05/2020 mammogram, 08/29/2020 mammogram - [facility], and 11/03/2017 mammogram - [facility]. Color flow ultrasound of the left breast 5-9 o'clock, and axilla regions was performed. Yancey scale images of the real-time examination were reviewed. There is a 0.3 cm oval mass with an indistinct margin in the left breast at 6 o'clock anterior depth 1 cm from the nipple. This oval mass is hypoechoic. This abnormality is not significantly changed. There also is a 0.8 cm x 2.3 cm x 0.3 cm irregular cyst in the left breast at 9 o'clock middle depth 2 cm from the nipple. This irregular cyst is anechoic with a well-defined boundary and posterior acoustic enhancement. This correlates as an incidental finding. Color flow imaging demonstrates that there is no vascularity present. This finding may represent two adjacent cysts versus one cyst with a somewhat thickened septation, possibly related to the prior surgery. No significant abnormalities were seen sonographically in the left axilla. IMPRESSION: PROBABLY BENIGN The 0.3 cm oval mass in the left breast at 6 o'clock anterior depth has a differential diagnosis of a complicated cyst or a solid mass and is probably benign. The 0.8 cm x 2.3 cm x 0.3 cm irregular cyst in the left breast at 9 o'clock middle depth is probably benign. A follow-up mammogram and an ultrasound in 6 months is recommended to demonstrate stability. This exam was interpreted at Station ID: [id number]. Electronically Signed By: Gilberto browne:03/07/2021 11:06:59 letter sent: Followup Recommended Ultrasound BI-RADS: 3 Probably benign
== END ==
PROVIDERS: PCP Nurse Practitioner; Referring Provider Nurse Practitioner; Visit Provider Nurse Practitioner
DX: R92.8 Other abnormal and inconclusive findings on diagnostic imaging of breast (principal); N63.25 Unspecified lump in the left breast, overlapping quadrants; N60.02 Solitary cyst of left breast
CPT/HCPCS: 76642; 77065; G0279

== ENCOUNTER → 2021-05-08 17:32 | Outpatient (CLI) | payer OTHER, SELFPAY ==
[2020-01-04 17:20] VITALS: BMI 28.4
--- NOTE | 2021-05-08 | DI.MRI.S_ITS ---
PROCEDURE: MR HEAD/BRAIN WO/W CON INDICATIONS: MS TECHNIQUE: Noncontrast axial T1 spin echo, axial T2 fast spin echo, sagittal and axial FLAIR, coronal T2 fast spin echo, axial gradient echo, axial diffusion and ADC through the brain. After the administration of contrast, axial and coronal 3D VIBE or T1 spin echo with fat saturation through the brain. COMPARISON: [facility], MR, MR HEAD/BRAIN WO CON, 12/07/2017, 18:04. [facility], MR, BRAIN W&WO CONTRAST, 05/04/2016, 18:55. [facility], , MRI BRAIN (IAC) W/WO CONTRAST, 12/22/2013, 12:13. FINDINGS: Image quality: Excellent. CSF Spaces: Basal cisterns are patent. No extra-axial fluid collections. Ventricles are normal in size and shape. Brain: No midline shift. No intracranial bleeds or masses. No suspicious white matter lesions. No abnormal intracranial enhancement. The brainstem appears normal. Diffusion-weighted images demonstrate no acute ischemic insults. No chronic ischemic insults. Normal intravascular flow voids are present. Skull and face: Calvarial marrow is normal in signal. Orbits appear normal. Sinuses: Sinuses and mastoids appear clear. IMPRESSION: 1. Stable examination compared to prior studies obtained December 07, 2017, May 04, 2016 and December 22, 2013. 2. No intracranial disease process. 3. No suspicious white matter lesions or suspicious postcontrast enhancement. Dictated by: Shira Polanco MD, PhD on 05/09/2021 at 7:49 Approved by: Shira Polanco MD, PhD on 05/09/2021 at 15:00
--- NOTE | 2021-05-08 | DI.MRI.S_ITS ---
PROCEDURE: MR CERVICAL SPINE WO/W CON INDICATIONS: MS TECHNIQUE: Noncontrast sagittal T1 spin echo and T2 fast spin echo, sagittal STIR, sagittal PD fast spin echo, foraminal oblique sagittal T2 fast spin echo, axial gradient echo or T2 fast spin echo through the cervical spine. After the administration of contrast, sagittal and axial T1 spin echo with fat saturation through the cervical spine. COMPARISON: [facility], MR, MR CERVICAL SPINE WO CON, 12/07/2017, 18:28. [facility], MR, C-SPINE W&WO CONTRAST, 05/04/2016, 19:15. FINDINGS: Image quality: Degraded by patient motion artifact. Alignment and curvature: There is normal bony alignment. Marrow: Marrow demonstrates normal overall signal. Spinal cord: Visualized spinal cord is normal in size, without white matter lesions. No suspicious intramedullary enhancement. No cerebellar tonsillar herniation. Paraspinous soft tissues: No paravertebral masses or suspicious enhancement. C2-C3: Normal appearance. C3-C4: Slight loss of disc signal. Minimal, diffuse disc bulge. Mild narrowing of the central canal. No neural foraminal narrowing. No neural compression. C4-C5: Slight loss of disc signal. Mild, diffuse disc bulge. Mild narrowing of the central canal. No neural foraminal narrowing. No neural compression. C5-C6: Loss of disc signal and height. Mild, diffuse disc bulge. Central/left central disc protrusion. Moderate narrowing of the central canal. Mild right neural foraminal narrowing. Central/left central disc protrusion abuts and slightly contours the anterior margin of the cervical spinal cord. C6-C7: Loss of disc signal. Mild to moderate diffuse disc bulge. Moderate narrowing of the central canal. No neural foraminal narrowing. No neural compression. C7-T1: Normal appearance. IMPRESSION: 1. Image quality degraded by patient motion artifact. 2. No abnormal spinal cord signal within limitations related to motion artifact. 3. No suspicious postcontrast enhancement. 4. Multilevel degenerative disc disease. 5. Moderate C5-C6 and C6-C7 central canal narrowing. Mild C3-C4 and C4-C5 central canal narrowing. 6. Mild right C5-C6 neural foraminal narrowing. 7. C5-C6 central/left central disc protrusion abuts and slightly contours the anterior left aspect of the cervical spinal cord. Dictated by: Shira Polanco MD, PhD on 05/09/2021 at 9:53 Approved by: Shira Polanco MD, PhD on 05/09/2021 at 10:01
== END ==
PROVIDERS: PCP Nurse Practitioner; Referring Provider Psychiatry & Neurology Neurology; Visit Provider Psychiatry & Neurology Neurology
DX: G35 Multiple sclerosis (principal); M50.321 Other cervical disc degeneration at C4-C5 level; M50.222 Other cervical disc displacement at C5-C6 level; M48.02 Spinal stenosis, cervical region
CPT/HCPCS: 70553; 72156; A9579

== ENCOUNTER → 2022-03-23 10:14 | Outpatient (CLI) | payer OTHER, SELFPAY ==
[2021-05-29 14:09] VITALS: BMI 28.4
--- NOTE | 2022-03-23 | DI.MG.S_ITS ---
BILATERAL DIGITAL DIAGNOSTIC MAMMOGRAM 3D/2D SHORT-TERM FOLLOW-UP WITH AUGMENTATION: 03/23/2022 CLINICAL: Short term follow up of the left breast, due for bilateral imaging. Comparison is made to exams dated: 03/07/2021 mammogram, 09/05/2020 mammogram, and 08/29/2020 mammogram - [facility]. Both breasts are heterogeneously dense, which may obscure small masses (category c / 51-75% glandular tissue). Left subglandular silicone implant is stable. Redemonstration of previously described irregular equal density asymmetry with an indistinct margin in the left breast at 6 o'clock middle depth. This is less prominent and decreased in size. No other significant masses, calcifications, or other findings are seen in either breast. IMPRESSION: INCOMPLETE: NEEDS ADDITIONAL IMAGING EVALUATION The irregular equal density asymmetry in the left breast is indeterminate. An ultrasound is recommended for further evaluation and is scheduled to immediately follow this examination. Based on Tyrer-Cuzick model (a risk assessment model), the patient's lifetime risk is 20.2% and her 10 year risk is 4.7%. If a patient has an elevated risk, a more comprehensive evaluation should be considered and/or a referral to a genetic counselor. The [place] [employer], [employer], and NCCN Guidelines advise the consideration of Breast MRI as an adjunct to screening mammography in patients whose Lifetime risk to develop breast cancer is 20% or higher. This exam was interpreted at Station ID: [id number]. NOTE: For mammograms, a report in lay terms will be sent to the patient. Approximately 15% of breast malignancies will not be visualized mammographically. In the management of a palpable breast mass, a negative mammogram must not discourage biopsy of a clinically suspicious lesion. Electronically Signed By: Louis Nicole M.D. aty/:03/23/2022 11:47:52 ACR BI-RADS Category 0: Incomplete 3340F
--- NOTE | 2022-03-23 | DI.US.S_ITS ---
ULTRASOUND OF LEFT BREAST: 03/23/2022 CLINICAL: 6 month follow-up of cysts. Comparison is made to exams dated: 03/23/2022 mammogram, 03/07/2021 ultrasound, 03/07/2021 mammogram, 09/13/2020 ultrasound, 09/05/2020 ultrasound, and 09/05/2020 mammogram - [facility]. Color flow and real-time ultrasound of the left breast were performed. Yancey scale images of the real-time examination were reviewed. There is a 0.4 cm x 0.1 cm x 0.2 cm oval mass with an indistinct margin in the left breast at 6 o'clock anterior depth 1 cm from the nipple. This oval mass is hypoechoic. This abnormality is not significantly changed. There also is a 0.6 cm x 0.2 cm x 0.5 cm irregular cyst in the left breast at 9 o'clock middle depth 2 cm from the nipple. This irregular cyst is anechoic with a well-defined boundary and posterior acoustic enhancement. This abnormality is decreased in size and less prominent and correlates as an incidental finding. Color flow imaging demonstrates that there is no vascularity present. This finding may represent two adjacent cysts versus one cyst with a somewhat thickened septation, possibly related to the prior surgery. IMPRESSION: PROBABLY BENIGN The 0.4 cm x 0.1 cm x 0.2 cm oval mass in the left breast at 6 o'clock anterior depth is not significantly changed and has a differential diagnosis of a complicated cyst or a solid mass and is probably benign. The 0.6 cm x 0.2 cm x 0.5 cm irregular cyst in the left breast at 9 o'clock middle depth is probably benign. A follow-up ultrasound in 6 months is recommended to demonstrate stability. Findings and recommendations were conveyed to the patient during today's evaluation. This exam was interpreted at Station ID: [id number]. Electronically Signed By: Louis Nicole M.D. aty/:03/23/2022 12:03:20 letter sent: Followup Recommended Ultrasound BI-RADS: 3 Probably benign
== END ==
PROVIDERS: PCP Nurse Practitioner; Referring Provider Nurse Practitioner; Visit Provider Nurse Practitioner
DX: R92.8 Other abnormal and inconclusive findings on diagnostic imaging of breast (principal); N63.25 Unspecified lump in the left breast, overlapping quadrants; Z98.82 Breast implant status; N60.02 Solitary cyst of left breast
CPT/HCPCS: 76642; 77066; G0279

== ENCOUNTER → 2022-09-24 07:07 | Outpatient (CLI) | payer OTHER, SELFPAY ==
[2021-05-29 14:09] VITALS: BMI 28.4
[2022-09-24 08:39] LABS: Creatinine Urine Random 243.5 mg/dL
[2022-09-24 08:55] LABS: Microalbumi Creatinin Ratio Ur 2.4 ug/mg CR (<30); Microalbumin Urine Random 0.6 mg/dL (0-1.6)
[2022-09-24 08:56] LABS: Add Manual Diff / Slide Review NO; Basophils Absolute Auto 0 /uL (0-100); Basophils Percent Auto 0.8 % (0-2); Eosinophils Absolute Auto 100 /uL (0-450); Eosinophils Percent Auto 2.8 % (2-4); Hematocrit 41.7 % (36-46); Hemoglobin 14.1 g/dL (12.0-16.0); Lymphocytes Absolute Auto 1800 /uL (1100-4500); Lymphocytes Percent Auto 34.2 % (25-40); Mean Corpuscular HGB Conc 33.7 % (30-36); Mean Corpuscular Hemoglobin 31.7 PG (26-34); Monocytes Absolute Auto 400 /uL (0-900); Monocytes Percent Auto 7.1 % (3-14); Neutrophils Absolute Auto 2900 /uL (1500-7000); Neutrophils Percent Auto 55.1 % (50-75); Platelet Count 225 X10^3/uL (150-400); Red Blood Cell Count 4.44 X10^6/uL (4.0-5.2); Red Cell Distribution Width 12.8 % (11.6-14.8); White Blood Cell Count 5.2 X10^3/uL (4.5-11.0)
[2022-09-24 09:13] LABS: Alanine Aminotransferase 82 IU/L (<35); Albumin 4.7 g/dL (3.5-5.0); Albumin Globulin Ratio 1.5 (1.0-2.8); Alkaline Phosphatase 90 U/L (38-126); Aspartate Aminotransferase 52 IU/L (14-36); BUN Creatinine Ratio 19.8 (6-22); Bilirubin Total 0.5 mg/dL (0.2-1.3); Blood Urea Nitrogen 16 mg/dL (7-17); Calcium 9.4 mg/dL (8.4-10.2); Carbon Dioxide 28 mmol/L (22-32); Chloride 105 mmol/L (98-107); Cholesterol 286 mg/dL (140-199); Estimated Glomerular Filt Rate > 60 mL/min (>60); Globulin 3.1 g/dL (1.7-4.1); Glucose 97 mg/dL (70-100); HDL Cholesterol 87 mg/dL (40-60); HEMOLYSIS < 15 (0-50); LDL Cholesterol Calculated 162 mg/dL (<100); Potassium 3.7 mmol/L (3.4-5.1); Sodium 141 mmol/L (137-145); Total Protein 7.8 g/dL (6.3-8.2); Triglycerides 187 mg/dL (35-150)
[2022-09-24 10:12] LABS: Vitamin B12 644 pg/mL (239-931)
[2022-09-24 10:14] LABS: Vitamin D 25 Hydroxy (D3) 40.8 ng/mL (30.0-100.0)
[2022-09-24 10:24] LABS: Free T4, Direct Thyroxine 0.84 ng/dL (0.78-2.19)
[2022-09-24 11:02] LABS: HIV 1 & 2 Ab/Ag 4th Gen Combo NEGATIVE (NEGATIVE); Hep C Virus Ab w/Reflex Quant NEGATIVE s/c (NEGATIVE)
[2022-09-25 09:34] LABS: x Labcorp Estim. Avg Glu (eAG) 111 mg/dL (.); x Labcorp Hemoglobin A1c 5.5 % (4.8-5.6)
[2022-09-25 17:21] LABS: Zinc 86 ug/dL (44-115)
[2022-09-26 08:51] LABS: Parathyroid Hormone Int 31 pg/mL (15-65)
[2022-10-02 12:31] LABS: Alpha-Tocopherol 11.7 mg/L (7.0-25.1); Gamma-Tocopherol 1.6 mg/L (0.5-5.5); Vitamin A 52.2 ug/dL (20.1-62.0)
[2022-10-05 01:04] LABS: Vitamin B1 154.6 nmol/L (66.5-200.0)
== END ==
PROVIDERS: PCP Nurse Practitioner; Referring Provider Nurse Practitioner; Visit Provider Nurse Practitioner
DX: Z00.00 Encounter for general adult medical examination without abnormal findings (principal); Z90.3 Acquired absence of stomach [part of]; Z11.59 Encounter for screening for other viral diseases; Z11.4 Encounter for screening for human immunodeficiency virus [HIV]
CPT/HCPCS: 36415; 80053; 80061; 82043; 82306; 82570; 82607; 82746; 83036; 83735; 83970; 84425; 84439; 84443; 84446; 84481; 84590; 84630; 85025; 86803; 87389

== ENCOUNTER → 2023-04-19 08:49 | Outpatient (CLI) | payer OTHER, SELFPAY ==
[2021-05-29 14:09] VITALS: BMI 28.4
--- NOTE | 2023-04-19 | DI.MG.S_ITS ---
BILATERAL DIGITAL DIAGNOSTIC MAMMOGRAM 3D/2D WITH AUGMENTATION: 04/19/2023 CLINICAL: Late short term follow up, due bilateral. Comparison is made to exams dated: 03/23/2022 mammogram, 03/07/2021 mammogram, 09/05/2020 mammogram, and 08/29/2020 mammogram - [facility]. Both breasts are heterogeneously dense, which may obscure small masses (category c / 51-75% glandular tissue). Left subglandular silicone implant is new. There is a stable irregular focal asymmetry in the left breast at 6 o'clock middle depth. No other significant masses, calcifications, or other findings are seen in either breast. IMPRESSION: INCOMPLETE: NEEDS ADDITIONAL IMAGING EVALUATION The stable irregular focal asymmetry in the left breast is indeterminate. An ultrasound is recommended. Based on Tyrer-Cuzick model (a risk assessment model), the patient's lifetime risk is 20.2% and her 10 year risk is 5.2%. If a patient has an elevated risk, a more comprehensive evaluation should be considered and/or a referral to a genetic counselor. The [place] [employer], [employer], and NCCN Guidelines advise the consideration of Breast MRI as an adjunct to screening mammography in patients whose Lifetime risk to develop breast cancer is 20% or higher. This exam was interpreted at Station ID: [id number]. NOTE: For mammograms, a report in lay terms will be sent to the patient. Approximately 15% of breast malignancies will not be visualized mammographically. In the management of a palpable breast mass, a negative mammogram must not discourage biopsy of a clinically suspicious lesion. Electronically Signed By: Fer Gonzalez M.D. lc/:04/19/2023 09:58:51 ACR BI-RADS Category 0: Incomplete 3340F
--- NOTE | 2023-04-19 08:50 | DI.US.S_ITS ---
ULTRASOUND OF LEFT BREAST: 04/19/2023 CLINICAL: Late 6 month follow-up of cysts. Comparison is made to exams dated: 04/19/2023 mammogram, 03/23/2022 ultrasound, 03/23/2022 mammogram, 03/07/2021 ultrasound, 03/07/2021 mammogram, and 09/13/2020 ultrasound - [facility]. Real-time ultrasound of the left breast was performed. Yancey scale images of the real-time examination were reviewed. There is a stable 0.6 cm x 0.3 cm x 0.7 cm possible complicated cyst in the left breast at 9 o'clock middle depth 2 cm from the nipple. The 0.4 cm x 0.1 cm x 0.2 cm mass in the left breast at 6 o'clock anterior depth 1 cm from the nipple is no longer seen. IMPRESSION: BENIGN There is no sonographic evidence of malignancy. The stable 0.6 cm x 0.3 cm x 0.7 cm possible complicated cyst in the left breast at 9 o'clock middle depth is benign. Two year stability established. Return to annual mammogram screening schedule. Consider additional supplemental MRI screening due to elevated lifetime risk. This exam was interpreted at Station ID: [id number]. Electronically Signed By: Fer Gonzalez M.D. lc/:04/19/2023 10:04:31 letter sent: Normal Exam Ultrasound BI-RADS: 2 Benign
== END ==
PROVIDERS: PCP Nurse Practitioner; Referring Provider Nurse Practitioner; Visit Provider Nurse Practitioner
DX: R92.8 Other abnormal and inconclusive findings on diagnostic imaging of breast (principal); N60.02 Solitary cyst of left breast
CPT/HCPCS: 76642; 77066; G0279

== ENCOUNTER → 2023-06-21 07:48 | Outpatient (CLI) | payer OTHER, SELFPAY ==
[2021-05-29 14:09] VITALS: BMI 28.4
[2023-06-21 08:38] LABS: Add Manual Diff / Slide Review NO; Basophils Absolute Auto 100 /uL (0-100); Basophils Percent Auto 0.9 % (0-2); Eosinophils Absolute Auto 100 /uL (0-450); Eosinophils Percent Auto 2.1 % (2-4); Hematocrit 43.8 % (36-46); Lymphocytes Absolute Auto 1800 /uL (1100-4500); Lymphocytes Percent Auto 25.8 % (25-40); Mean Corpuscular HGB Conc 34.1 % (30-36); Mean Corpuscular Hemoglobin 32.1 PG (26-34); Mean Corpuscular Volume 94.1 fL (80-100); Monocytes Absolute Auto 500 /uL (0-900); Monocytes Percent Auto 6.5 % (3-14); Neutrophils Absolute Auto 4600 /uL (1500-7000); Neutrophils Percent Auto 64.7 % (50-75); Platelet Count 248 X10^3/uL (150-400); Red Blood Cell Count 4.66 X10^6/uL (4.0-5.2); Red Cell Distribution Width 13.4 % (11.6-14.8); White Blood Cell Count 7.1 X10^3/uL (4.5-11.0)
[2023-06-21 08:59] LABS: Alanine Aminotransferase 349 IU/L (<35); Albumin 4.5 g/dL (3.5-5.0); Albumin Globulin Ratio 1.3 (1.0-2.8); Alkaline Phosphatase 98 U/L (38-126); Aspartate Aminotransferase 270 IU/L (14-36); BUN Creatinine Ratio 20.5 (6-22); Bilirubin Total 0.7 mg/dL (0.2-1.3); Blood Urea Nitrogen 17 mg/dL (7-17); Carbon Dioxide 28 mmol/L (22-32); Chloride 103 mmol/L (98-107); Estimated Glomerular Filt Rate > 60 mL/min (>60); Globulin 3.4 g/dL (1.7-4.1); Glucose 88 mg/dL (70-100); HEMOLYSIS < 15 (0-50); Potassium 4.1 mmol/L (3.4-5.1); Sodium 140 mmol/L (137-145); Total Protein 7.9 g/dL (6.3-8.2)
[2023-06-21 09:01] LABS: Hemoglobin A1C% w Est Avg Glu 5.4 % (4.0-6.0)
[2023-06-21 09:15] LABS: Free T3, Triiodothyronine Free 4.06 pg/mL (2.77-5.27); Free T4, Direct Thyroxine 1.26 ng/dL (0.78-2.19)
[2023-06-21 09:16] LABS: Follicle Stimulating Hormone 73.5 mIU/mL
[2023-06-21 09:18] LABS: Vitamin D 25 Hydroxy (D3) 50.9 ng/mL (30.0-100.0)
[2023-06-21 09:29] LABS: Thyroid Stimulating Hormone 0.975 uIU/mL (0.47-4.68)
[2023-06-21 09:50] LABS: Vitamin B12 > 1000 pg/mL (239-931)
== END ==
LOC: LAB 07:49
PROVIDERS: PCP Nurse Practitioner; Referring Provider Nurse Practitioner; Visit Provider Nurse Practitioner
DX: Z90.3 Acquired absence of stomach [part of] (principal); G35 Multiple sclerosis; R53.83 Other fatigue; R23.2 Flushing; N91.2 Amenorrhea, unspecified
CPT/HCPCS: 36415; 80053; 82306; 82607; 83001; 83036; 84439; 84443; 84481; 85025

== ENCOUNTER → 2023-07-05 11:22 | Outpatient (CLI) | payer OTHER, SELFPAY ==
[2021-05-29 14:09] VITALS: BMI 28.4
[2023-07-06 09:28] LABS: HBsAg Screen Negative (Negative); Hepatitis A Antibody IgM Negative (Negative); Hepatitis B Core Antibody IgM Negative (Negative); Hepatitis C Antibody Non Reactive (Non Reactive)
== END ==
PROVIDERS: PCP Nurse Practitioner; Referring Provider Nurse Practitioner; Visit Provider Nurse Practitioner
DX: R74.8 Abnormal levels of other serum enzymes (principal)
CPT/HCPCS: 36415; 80074

== ENCOUNTER → 2023-07-13 07:59 | Outpatient (CLI) | payer OTHER, SELFPAY ==
[2021-05-29 14:09] VITALS: BMI 28.4
--- NOTE | 2023-07-13 07:59 | DI.US.S_ITS ---
PROCEDURE: US ABDOMEN LIMITED INDICATIONS: ELEVATED LIVER ENZYMES TECHNIQUE: Real-time focused scanning was performed of the abdomen, with image documentation. COMPARISON: None. FINDINGS: Liver measures 19 cm. Increased echogenicity. Suspected focal fatty sparing adjacent to the gallbladder fossa. No discrete solid mass. There are suspected small cysts. Gallbladder is unremarkable. CBD measures 5 mm, within normal limits. Visualized pancreas is unremarkable. IMPRESSION: Increased hepatic echogenicity and borderline hepatomegaly. These findings are nonspecific, but most commonly seen with steatosis. No pathologic biliary dilation. No acute gallbladder abnormality. Dictated by: Fer Gonzalez M.D. on 07/13/2023 at 9:14 Approved by: Fer Gonzalez M.D. on 07/13/2023 at 9:15
== END ==
LOC: US 07:59
PROVIDERS: PCP Nurse Practitioner; Referring Provider Nurse Practitioner; Visit Provider Nurse Practitioner
DX: R74.8 Abnormal levels of other serum enzymes (principal)
CPT/HCPCS: 76705

== ENCOUNTER → 2023-07-30 17:04 | Outpatient (CLI) | payer OTHER, SELFPAY ==
[2021-05-29 14:09] VITALS: BMI 28.4
[2023-07-30 18:43] LABS: Alanine Aminotransferase 64 IU/L (<35); Albumin 4.2 g/dL (3.5-5.0); Albumin Globulin Ratio 1.5 (1.0-2.8); Alkaline Phosphatase 84 U/L (38-126); Aspartate Aminotransferase 38 IU/L (14-36); BUN Creatinine Ratio 25.3 (6-22); Bilirubin Total 0.4 mg/dL (0.2-1.3); Blood Urea Nitrogen 21 mg/dL (7-17); Carbon Dioxide 28 mmol/L (22-32); Chloride 103 mmol/L (98-107); Estimated Glomerular Filt Rate > 60 mL/min (>60); Globulin 2.8 g/dL (1.7-4.1); Glucose 86 mg/dL (70-100); HEMOLYSIS < 15 (0-50); Potassium 4.5 mmol/L (3.4-5.1); Sodium 137 mmol/L (137-145)
== END ==
LOC: LAB 17:04
PROVIDERS: PCP Nurse Practitioner; Referring Provider Nurse Practitioner; Visit Provider Nurse Practitioner
DX: R74.8 Abnormal levels of other serum enzymes (principal)
CPT/HCPCS: 36415; 80053